=== PATIENT | male | born 1975 | race Two or more races ===

== ENCOUNTER 2024-03-19 06:25 | Day surgery (SDC) | payer BC, SELFPAY ==
[2024-03-18 07:56] VITALS: BMI 35.2
[2024-03-19 06:41] VITALS: BMI 35.2
[2024-03-19 06:59] VITALS: BP 151/94; PULSE 76; RESP 18; TEMP 36.1; O2SAT 97
[2024-03-19] MEDS: LACTATED RINGERS 1000ML 1,000 ML 25 ML IV (07:12)
[2024-03-19 07:30] VITALS: O2SAT 97
--- NOTE | 2024-03-19 07:53 | P.PNANES_ITS ---
[facility] Disclaimer: The information contained in this section may have been updated after the patient was seen, as this information can be updated by other users. Medical History Hypertension Family History Mother Family history of hypertension Social History (Updated 03/19/24 @ 07:09 by Nena Nieto RN) Smoking Status: Never smoker alcohol intake: never substance use type: denies use current occupational status: employed Travel in the last 8 weeks: None caffeine: Yes [facility] Anesthesia Checklist Patient Identification Patient Identification: Arm Band Structural Data Admitted From: Home Planned Operative Procedure/s: colonoscopy Consent for Planned Operative Procedure(s) Verified: Yes Verified Documents: Surgical Consent and History and Physical NPO Status Verified Time NPO: 00:00 Additional verifications Anesthesia Reactions: No Airway Assessment Mallampati Score:: Class II C-Spine Mobility Assessed: Yes TMJ Mobility Assessed: Yes Dentition: Good Dentition Neurological Assessment Level of Consciousness: Awake, Alert and Appropriate Anesthesia Plan Anesthesia Risk discussed: Yes Anesthesia Plan: Verified ASA Class: II Anesthesia Type: MAC
--- NOTE | 2024-03-19 07:59 | HMH.SCOPE ---
Procedure: Date: 03/19/24 Patient Date of :: 1975 Procedure Performed:: Total colonoscopy to terminal ileum with sigmoid biopsy Indications:: 48-year-old male referred by Haley Conner for initial screening colonoscopy. Performing Provider:: Seymour Higgins MD Referring Provider:: Haley Conner MD Sedation:: MAC sedation Procedure:: Patient history was obtained and appropriate physical examination was performed. Patient's medications and allergies were reviewed. Informed consent was obtained after explaining the benefits, alternatives, and risks of the procedure including, but not limited to, bleeding, perforation, missed lesions, and adverse reaction to anesthesia medications. Patient was transported to endoscopy procedure room. Patient was connected to monitoring devices. Throughout the procedure the patient's blood pressure, pulse, and oxygen saturations were monitored continuously. Patient identification and planned procedure were verified by the staff. Patient was positioned in lateral decubitus position. Digital anorectal exam was performed. Variable stiffness Olympus colonoscope was inserted and advanced under direct visualization to the cecum. Adequacy of the colonic preparation was noted. The colonoscope was advanced a short distance into the terminal ileum. The colonoscope was then slowly withdrawn while carefully examining the color, texture, anatomy, and integrity of the mucosoa circumferentially. Within the rectum retroflexion was performed. Colonoscope was then withdrawn. . Impression: Colonic preparation was good although there was some liquid stool coating the lombardi of the right colon. This was able to be mostly cleared. He had some rare small sigmoid diverticuli. There was a focal small area of pigmentation in the sigmoid colon which was removed with biopsy forceps to rule out early adenoma. However this is likely inconsequential. . Findings:: Rare small sigmoid diverticuli Focal area of pigmentation sigmoid colon, biopsied Recommendations:: Repeat colonoscopy pending pathology. Likely 5 to 7 years given the fact that this is the patient's initial screening colonoscopy. Complications:: None immediately apparent Estimated blood obtained (mL): 1 Colonoscopy Component Colonoscopy Component Was a colonoscopy performed during today's procedure?: Yes Recommended follow up colonoscopy of at least 10 years?: No If no, follow up colonoscopy recommended in ___ years?: 5-7 Reason for not recommending >/= 10 yr follow-up interval?: See above
[2024-03-19 08:00] VITALS: BP 121/61; PULSE 77; RESP 18; TEMP 36.2; O2SAT 94
[2024-03-19 08:10] VITALS: BP 114/62; PULSE 83; RESP 18; O2SAT 96
[2024-03-19 08:20] VITALS: BP 137/82; PULSE 66; RESP 18; O2SAT 95
[2024-03-19 08:29] VITALS: BP 142/84; PULSE 66; RESP 18; O2SAT 95
== END 2024-03-19 08:32 | disposition home or self-care (01) ==
PROVIDERS: Visit Provider Surgery
PROC: 0DJD8ZZ Inspection of Lower Intestinal Tract, Via Natural or Artificial Opening Endoscopic (ICD-10-PCS; CPT 45380; principal; 2024-03-19 07:30)
DX: Z12.11 Encounter for screening for malignant neoplasm of colon (principal); K57.30 Diverticulosis of large intestine without perforation or abscess without bleeding; L81.8 Other specified disorders of pigmentation
CPT/HCPCS: 45380

== ENCOUNTER 2024-09-09 08:54 | Outpatient (CLI) | payer BC, SELFPAY ==
[2024-09-09 09:33] LABS: Basophils % 0.6 % (0.1-2.0); Eosinophils # 0.1 K/mm3 (0.0-0.4); Eosinophils % 1.5 % (0.1-12.0); Hemoglobin 14.6 g/dL (14.1-18.0); Lymphocytes # 2.1 K/mm3 (0.7-4.5); Lymphocytes % 31.6 % (10-50); Mean Corpuscular HGB Conc 34.8 g/dL (31.8-35.4); Mean Corpuscular Hemoglobin 28.9 pg (27.0-31.2); Mean Corpuscular Volume 83.1 fl (80-94); Mean Platelet Volume 8.6 fl (7.4-10.4); Monocytes # 0.4 K/mm3 (0.1-1.0); Monocytes % 6.3 % (1.7-9.3); Neutrophils % 60.1 % (37.0-80.0); Platelet Count 256 K/mm3 (142-424); Red Blood Count 5.05 M/mm3 (4.60-6.20); Red Cell Distribution Width 13.5 % (11.5-17.5); White Blood Count 6.6 K/mm3 (4.8-10.8)
--- NOTE | 2024-09-09 09:38 | ECG_ITS ---
APPROVED REPORT Exam: Resting ECG HR:65 bpm ECG Measurements Heart Rate 65 AXES UT 187 P 38 QRSd 108 QRS 60 QT 373 T 27 QTc 384 Conclusion SINUS RHYTHM PROBABLE INFERIOR MYOCARDIAL INFARCTION , PROBABLY OLD [35 ms Q WAVE IN II/aVF] ABNORMAL ECG UNCONFIRMED REPORT Electronically signed by : Hank Faye MD 09/12/2024 12:51:59
[2024-09-09 10:00] LABS: Anion Gap 15.2 mEq/L (5-15); Blood Urea Nitrogen 12 mg/dl (9-20); Calcium 9.6 mg/dl (8.4-10.2); Carbon Dioxide 21 mmol/L (22.0-30.0); Chloride 109 mmol/L (98-107); Estimated Glomerular Filt Rate 119 ml/min (>60); GFR (African American) 144 ML/MIN (>60); Glucose 108 mg/dl (74-100); Potassium 4.2 mmoL/L (3.5-5.1); Sodium 141 mmol/L (136-145)
== END 2024-09-09 23:59 | disposition home or self-care (01) ==
PROVIDERS: PCP Family Medicine; Visit Provider Surgery
DX: K42.9 Umbilical hernia without obstruction or gangrene (principal)
CPT/HCPCS: 36415; 80048; 85025; 93005

== ENCOUNTER 2024-09-15 12:23 | Outpatient (CLI) | payer BC, SELFPAY | END 2024-09-15 23:59 | disposition home or self-care (01) | LOC: PREOP 12:25 | PROVIDERS: PCP Family Medicine; Visit Provider Surgery | DX: R69 Illness, unspecified (principal) ==

== ENCOUNTER 2024-09-20 08:32 | Day surgery (SDC) | payer BC, SELFPAY ==
[2024-09-15 12:54] VITALS: BMI 33.0
[2024-09-20] VITALS (11 sets, daily range): BP systolic 106–146; BP diastolic 69–88; PULSE 63–75; RESP 16–20; TEMP 35.8–43; O2SAT 94–99; BMI 33.0
[2024-09-20] MEDS: 0.9 % SODIUM CHLORIDE 1000ML 1,000 ML 25 ML IV (08:57)
--- NOTE | 2024-09-20 09:50 | P.HP_ITS ---
HPI HPI HPI: Patient presents for umbilical hernia repair. He has had some discomfort from a bulge at his umbilical area present for about 5 years. [facility] Disclaimer: The information contained in this section may have been updated after the patient was seen, as this information can be updated by other users. Medical History Allergies Hypertension Surgical History History of colonoscopy Family History Family history of diabetes mellitus Family history of hypertension Mother Social History Smoking Status: Never smoker alcohol intake: never substance use type: denies use current occupational status: employed and unemployed Travel in the last 8 weeks: None caffeine: Yes Other Medical History Have you received the Pneumonia Vaccine: Yes Meds Home Medications and Allergies Home Medications ?Medication ?Instructions ?Recorded ?Confirmed ?Type fenofibrate 54 mg tablet 54 mg PO DAILY 01/04/20 09/20/24 History amlodipine 5 mg tablet 5 mg PO DAILY 08/17/24 09/20/24 History lisinopril 10 mg tablet 10 mg PO DAILY 08/17/24 09/20/24 History New Prescriptions to Start Prescriptions: Allergies Allergy/AdvReac Type Severity Reaction Status Date / Time No Known Drug Allergies Allergy Verified 09/09/24 09:28 Exam Data for Last 24 hours Vital signs and Labs for Last 24 Hours: Temp Pulse Resp BP Pulse Ox O2 Del Method 97.7 F 70 18 145/88 H 97 Room Air 09/20/24 09:04 09/20/24 09:04 09/20/24 09:04 09/20/24 09:04 09/20/24 09:04 09/20/24 09:04 I & O for Last 24 hours: Intake & Output 09/17/24 09/18/24 09/19/24 09/20/24 11:59 11:59 11:59 11:59 Weight 211 lb Constitutional Constitutional: no acute distress *Routine HEENT Exam Head: Present normocephalic Eye: Present EOMI and PERRL ENT: Present mucous membranes moist *Routine Neck Exam Neck: Present supple; Absent lymphadenopathy *Routine Respiratory Exam Respiratory: Present CTA bilaterally *Routine Cardiovascular Exam Cardiovascular: Present RRR *Routine Abdominal Exam Abdominal: Present soft and hernia; Absent tenderness *Routine Rectal Exam Rectal:: deferred *Routine Genitalia Exam Genitalia:: deferred *Routine Extremities Exam Extremities: Absent cyanosis, clubbing or edema *Routine Skin Exam Skin: Present warm; Absent rash *Routine Neurological Exam Neurological: Present alert and oriented X3 Assessment and Plan *Assessment and plan (1) Umbilical hernia: Status: Acute Category: Medical Code(s): K42.9 - Umbilical hernia without obstruction or gangrene Plan Open umbilical hernia repair
[2024-09-20] MEDS: CEFAZOLIN SODIUM 2 GM in 0.9 % SODIUM CHLORIDE 100 ML IV (09:52)
[2024-09-20] MEDS: LIDOCAINE 1% 20ML MDV 20 ML (10:10)
[2024-09-20] MEDS: ROPIVACAINE 0.5% 30ML VIAL 150 MG (10:16)
--- NOTE | 2024-09-20 10:52 | EXP.OP.NOTE ---
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 Operative note:: Consent was obtained patient was taken the operating room. He was positioned in supine position. General anesthesia was induced. Abdomen was prepped and draped in the standard surgical fashion. Subumbilical skin incision was made. Dissection was carried down through subcutaneous tissues. Hernia sac was encountered. There was some herniated fatty tissues which were delivered and dissected free from the umbilical subdermis. Extraneous tissues of the herniated fat and peritoneum of the hernia sac were excised down to normal fascia. The overall size of the defect measured about 10 mm. Initially consideration was being given for possible repair using small Ventralex. However felt that there could be potential for recurrence. Therefore medium size 6.4 cm Bard Ventralex mesh was brought onto the field. The defect was lengthened with incision of the fascia for a few millimeters. Medium size Bard Ventralex was then inserted into the peritoneal cavity while elevating the fascia. The mesh was oriented and attempt to avoid folding of the mesh. Appeared to be in a good position. The tails of the Prolene mesh was sutured superiorly and inferiorly with 2-0 Prolene sutures. Tails of the mesh were then cut flush with the fascia. Fascia was closed over the mesh with several interrupted 0 Ethibond sutures. Local anesthetic was infiltrated. Umbilical subdermis was reapproximated to the underlying fascia with several 2-0 Vicryl sutures. Deep dermal tissues were closed with interrupted 3-0 Vicryl. Skin was closed with 4-0 Monocryl in a running subcuticular fashion. Dermabond and clean dry sterile dressing was applied. Condition: stable Disposition: PACU Complications:: None immediately apparent
--- NOTE | 2024-09-20 11:04 | P.PNANES_ITS ---
[facility] Disclaimer: The information contained in this section may have been updated after the patient was seen, as this information can be updated by other users. Medical History Allergies Hypertension Surgical History History of colonoscopy Family History Mother Family history of hypertension Other Family history of diabetes mellitus Social History Smoking Status: Never smoker alcohol intake: never substance use type: denies use current occupational status: employed and unemployed Travel in the last 8 weeks: None caffeine: Yes [facility] Anesthesia Checklist Patient Identification Patient Identification: Arm Band, Family and Verbal (Name & ) Structural Data Admitted From: Home Planned Operative Procedure/s: UHR w/mesh Consent for Planned Operative Procedure(s) Verified: Yes Verified Documents: Surgical Consent and History and Physical NPO Status Verified Time NPO: 00:00 Chart Verification Results Verified: CBC, BMP and ECG Additional verifications Patient : No Anesthesia Reactions: No Hx Blood Transfusions: No Blood Transfusion Reaction: No Cardiovascular Assessment Heart Sounds: S1 & S2 Pulse Rhythm: Irregular Peripheral Edema: No Airway Assessment Mallampati Score:: Class II C-Spine Mobility Assessed: Yes (FROM demonstrated) TMJ Mobility Assessed: Yes Dentition: Good Dentition (Nothing loose per pt.) Neurological Assessment Level of Consciousness: Awake, Alert, Appropriate and Follows Commands Hx Seizures: No Numbness or tingling in extremities: No Anesthesia Plan Anesthesia Risk discussed: Yes Anesthesia Plan: Verified ASA Class: III Anesthesia Type: General
--- NOTE | 2024-09-20 11:07 | P.PNANES_ITS ---
[facility] Anesthesia Record Part I Anesthesia Record I Intake, IV Amount: 950 Hydration: Adequate Estimated blood loss (mL): 10 Urine output (mL): 0 Blood Products used (#): none Blood Pressure: 106/69 SaO2: 97 Pulse Rate: 70 Airway Patency: Patent Respiratory Rate: 20 Temperature: 96.4 F Patient is:: Drowsy and Oral/Nasal airway (#9.[address] upon arrivl to PACU. Pt. gagging, so removed. Pt. unable to maintain SpO2 d/t undiagnosed NESTOR. #34F nasal trumpet placed RT. nare. Tolerated well.) Stable to PACU at:: 11:00
--- NOTE | 2024-09-20 11:56 | SUR.PHASEII ---
All discharge instructions were given by [facility] resident care technician. Pt and both verbalized understanding of DC instructions.
--- NOTE | 2024-09-20 14:14 | EXP.ANES.II ---
[facility] Anesthesia Record Part II Anesthesia Record Part II Discharge Time: 11:25 Destination: Surgical Day Care (OP Surgery) PACU nurse assessment reviewed?: Yes Patient Condition:: Good Anesthesia Complications:: None Swallowing reflex intact?: Yes Airway Patency: Patent Cyanosis?: No Blood Pressure: 118/71 SaO2: 94 Respiratory Rate: 18 Pulse Rate: 63 Temperature: 96.4 F Mental Status: Alert & Oriented Pain level:: 0 Nausea and/or vomitting:: None Intake, IV Amount: 950 Hydration: Adequate
== END 2024-09-20 12:10 | disposition home or self-care (01) ==
PROVIDERS: PCP Family Medicine; Visit Provider Surgery
PROC: (CPT 49592; principal; 2024-09-20 10:00)
DX: K42.9 Umbilical hernia without obstruction or gangrene (principal)
CPT/HCPCS: 49592; 96374; J3490; C1781; J0690; J1100; J1885; J2250; J2405; J3010; J7030